=== PATIENT | female | born 1955 | race Caucasian/White ===

== ENCOUNTER → 2017-01-13 | Outpatient (CLI) | payer OTHER ==
[~2017-01-13] MED LIST: ASPIR 8181 MG; DICLOFENAC SODI50 M1; HYDROCHLOROTHIA25 M1; LISINOPRIL10 MG; TAMIFLU 75MG CA75 MG PO
--- NOTE | 2017-01-16 12:01 | RADIOLOGY REPORT PS360 ---
DIG MAMM-DX UNI A/VWS-LT W/CAD, US BREAST-LT COMPLETE W/AXILLA Ordering Physician: Tapan Hackett MD Patient Age: 61 years Female . COMPARISON: .January 2015 and June 2012 bilateral digital mammogram from [facility] Previous mammograms: [facility] 06/2008 & 08/2009 bilateral mammogram and left breast ultrasound INDICATION: Dx mammogram todayto evaluate asymmetric area of density upper-outer quadrant left breas 61-year-old. No hormones. No new complaints. Previous excisional biopsy benign right and left breast ---DIAGNOSTIC LEFT MAMMOGRAM-with spot views-- TECHNIQUE: CC and MLO images with spot CC and 90 degree and MLO view of density upper-outer quadrant left breast FINDINGS: Mild/moderate fibroglandular elements on lateral : The density towards upper-outer quadrant left breast appears similar to studies dating back to 2008 2009. Appears reflect an area of asymmetric glandular tissue which compresses out on our additional spot views today supporting stable feature. ======== --ULTRASOUND LEFT BREAST including axillary survey-- Ultrasound entire breast performed including axillary survey COMPARISON is made to 2010 outside ultrasound study Subsequent ultrasound performed here shows. 3 o'clock position mid breast: 3 adjacent small cystic-appearing areas. The most evident measuring up to 3.6 mm length mm ,. These alignIn a row & conceivably could reflect a prominent duct. No suspicious findings today. No dominant mass nor prominent cyst. . Similar small cystic area was seen at 6 o'clock position on the prior ultrasound from 2009 Survey of axilla reveals no significant findings. Scattered benign nodes IMPRESSION: ... Left breast:. The density seen at lateral left breast appears to be a stable long-standing asymmetric area of glandular tissue. It compresses out today less evident & appears stable since mammograms dating back to 2008 2009. Ultrasound left breast reveals no areas of significant concern. Only 3 Tiny adjacent cyst noted at 3 o'clock position could contribute to this area of density. No suspicious solid or cystic mass. Routine Follow-up in one year the adequate after final review of all images BI-RADS CATEGORY: 2_Benign RECOMMENDED FOLLOWUP: 11M -12 MONTH FOLLOW-UP (A letter has been sent to the patient regarding results of the study.)
== END ==
LOC: RAD 13:45
DX: R92.8 Other abnormal and inconclusive findings on diagnostic imaging of breast (principal)
CPT/HCPCS: G0206-LT

== ENCOUNTER → 2017-04-23 | Outpatient (CLI) | payer OTHER ==
--- NOTE | 2017-04-23 16:01 | RADIOLOGY REPORT PS360 ---
ANKLE-RT-3 VIEWS HISTORY: Pain following injury ROLLED ANKLE FRIDAY ORDERING PHYSICIAN: TERI ISABEL DPM PATIENT AGE: 61 years COMPARISON: None FINDINGS: There is moderate soft tissue swelling overlying the lateral malleolus. Cortical regularity involving the tip of the distal fibula. There are at least 3 bony densities at this region all of which are fairly well-circumscribed.. No other significant anomalies are evident. IMPRESSION: 1. Avulsion fractures involves the tip of the lateral malleolus. These may be old. Please correlate with clinical findings. They could be a combination of old and acute avulsion fracture. 2. Moderate soft tissue swelling laterally
--- NOTE | 2017-04-23 16:02 | RADIOLOGY REPORT PS360 ---
ANKLE-LT-3 VIEWS HISTORY: Posttraumatic pain ROLLED ANKLE FRIDAY ORDERING PHYSICIAN: TERI ISABEL DPM PATIENT AGE: 61 years COMPARISON: None FINDINGS: No fracture or dislocation. No lytic or blastic change. There is normal mineralization.. The joint spaces are well-preserved. No significant degenerative/arthritic changes. No erosive changes evident. Nonspecific soft tissue calcification is present in the pretibial region and may be due to phleboliths IMPRESSION: No acute finding
== END ==
LOC: RAD 13:35
DX: M25.571 Pain in right ankle and joints of right foot (principal); M25.572 Pain in left ankle and joints of left foot